=== PATIENT | male | born 1950 | race Caucasian/White ===

== ENCOUNTER 2020-03-25 07:21 | Emergency (ER) | payer MEDICARE, SELFPAY ==
--- NOTE | 2020-03-25 07:36 | ED_ITS ---
HPI - General Adult General Chief complaint: Fall Stated complaint: Right ear injury Time Seen by Provider: 03/25/20 07:27 Source: patient Mode of arrival: Ambulatory Limitations: no limitations History of Present Illness HPI narrative: 69-year-old male here for evaluation of injuries that he sustained approximately 8 hours prior to arrival here in the ER. Patient is on anticoagulation. He states that last evening he rolled out of bed hitting the right side of his head on the corner of his night stand. He states he was somewhat dazed afterwards. Was bleeding from his right ear. There was no loss of consciousness. He did try to clean of the blood from his right ear. Did not want to come the emergency department last evening but this morning was convinced to come by his . There is no other injuries from the event. Related Data Home Medications Medication Instructions Recorded Confirmed apixaban [Eliquis] 2.5 mg PO DAILY 03/25/20 03/25/20 clopidogrel [Plavix] 75 mg PO DAILY 03/25/20 03/25/20 Allergies Allergy/AdvReac Type Severity Reaction Status Date / Time No Known Drug Allergies Allergy Verified 03/25/20 07:45 Review of Systems Constitutional Constitutional: Denies fever(s) and Denies headache(s) ENT Ears, Nose, Mouth, and Throat: Denies dental pain, Denies dysphagia, Denies vertigo, Denies dizziness, Reports ear discharge, Reports otalgia, Denies facial pain, Denies headache(s), Denies neck pain, Reports tinnitus (Left ear but this is not new) and Denies sore throat Comments: Bleeding from around his right ear Cardiovascular Cardiovascular: Denies chest pain and Denies dyspnea Respiratory Respiratory: Denies dyspnea Gastrointestinal Gastrointestinal: Denies dysphagia Musculoskeletal Musculoskeletal: Denies neck pain and Denies tingling Integumentary/Breasts Comments: Cut the outside of the right ear Neurologic Neurologic: Denies behavioral changes, Denies confusion, Denies vertigo, Denies dizziness, Denies headache(s) and Denies tingling Psychiatric Psychiatric: Denies behavioral changes and Denies confusion Hematologic/Lymphatic Comments: On anticoagulation Allergic/Immunologic Allergic/Immunologic: Denies urticaria Patient History Medical History Tinnitus (Acute) Social History (Reviewed 03/25/20 @ 07:39 by ROSALIO Muñoz marital status: lives independently: Yes Smoking Status: Never smoker Exam Initial Vital Signs Initial Vital Signs: Vital Signs Temperature 98.1 F 03/25/20 07:41 Pulse Rate 78 03/25/20 07:41 Respiratory Rate 18 03/25/20 07:41 Blood Pressure 136/83 03/25/20 07:41 Pulse Oximetry 97 03/25/20 07:41 Const General: cooperative, comfortable, well developed and well groomed Limitations: mental status not altered HENMT Head: normal to inspection and normocephalic Ears: TM's normal bilaterally and EAC abnormal EAC tenderness (0.25 cm cut to the superior aspect of the tragus right ear) on the right Skin Other: Cut to the superior aspect of the tragus Extrem General: capillary refill normal Psych Appearance: grossly normal and well kempt Scores GCS Mystic coma scale eye opening: Spontaneous Mystic coma scale verbal response: Orientated Mystic coma scale motor response: Obey commands Reji coma scale total score: 15 Course Orders Ordered: ED Orders 03/25/20 07:36 CT head/brain wo con Stat 03/25/20 08:27 MR head/brain wo/w con Stat Vital Signs Vital signs: Vital Signs - 8 hr 03/25/20 07:41 Temperature 98.1 F Pulse Rate 78 Respiratory Rate 18 Blood Pressure 136/83 Pulse Oximetry 97 Medical Decision Making Imaging Data CT scan - head: Radiologist's Impression: [place] [address] CT Scan Report Signed Patient: Jerome Qiu#: [id number] : 3Acct:[id number] Age/Sex: 69 / MDate of Service: 03/25/20 Loc: ED Accession Number: [id number] Procedure: CT head/brain wo con Ordering Provider: Yuriy Thompson D.O. PROCEDURE: CT HEAD/BRAIN WO CON INDICATIONS: fell hit right side of head on anticoagulation TECHNIQUE: Noncontrast 4.5 mm thick angled axial sections acquired from the foramen magnum to the vertex, with coronal and sagittal reformats. For radiation dose reduction, the following was used: automated exposure control, adjustment of mA and/or kV according to patient size. COMPARISON: None. FINDINGS: Image quality: Excellent. CSF spaces: Basal cisterns are patent. No extra-axial fluid collections. The ventricles are symmetric in size and shape. Brain: No definite intracranial bleeds There is a questionable hyperdense mass within the left inferior medial cerebellar hemisphere which measures 1.5 x 1.2 x 0.9 cm (series 2/image 5 and series 5/image 22). This measures approximately 60 Hounsfield units in density. There is no surrounding edema or mass effect. There is cerebral volume loss for age, with resultant ventricular and sulcal prominence. There are periventricular and deep white matter chronic small vessel ischemic changes. There is intracranial internal carotid artery atherosclerosis. Skull and face: Calvarium and visualized facial bones appear intact, without suspicious lesions. Sinuses: Visualized sinuses and mastoids are clear. IMPRESSION: 1. No finding to suggest acute intracranial hemorrhage. However, there is a masslike hyperdensity within the left cerebellar hemisphere. Given the density, hemorrhage cannot be entirely excluded; however this appears to represent an indolent mass or may be artifact from the adjacent hyperdense bone. No definite dural tail to suggest meningioma; however a dural-based mass cannot be excluded. Further characterization with MRI with and without contrast could be used. This finding was discussed with Dr. Thompson at 8:26 a.m. On March 25, 2020. Dictated by: Octavia Meehan M.D. on 03/25/2020 at 8:18 Approved by: Octavia Meehan M.D. on 03/25/2020 at 8:28 MRI brain: Radiologist's Impression: [place] [address] Magnetic Resonance Report Signed Patient: Maninder Qiu#: [id number] : 3Acct:[id number] Age/Sex: 69 / MDate of Service: 03/25/20 Loc: ED Accession Number: [id number] Procedure: MR head/brain wo/w con Ordering Provider: Yuriy Thompson D.O. PROCEDURE: MR HEAD/BRAIN WO/W CON INDICATIONS: Cerebellar finding on CT MRI requested by Rads TECHNIQUE: Noncontrast axial T1 spin echo, axial T2 fast spin echo, sagittal and axial FLAIR, coronal T2 fast spin echo, axial gradient echo, axial diffusion and ADC through the brain. After the administration of contrast, axial and coronal T1 spin echo with fat saturation through the brain. COMPARISON: [facility], CT, CT HEAD/BRAIN WO TAE, 03/25/2020, 7:54. FINDINGS: Image quality: Excellent. CSF spaces: Basal cisterns are patent. No extra-axial fluid collections. Ventricles are normal in size and shape. Brain: There is a well-defined, T1 hypointense, T2 isointense, homogeneous avidly enhancing mass identified along the medial margin of the left cerebral hemisphere which appears to have a broad-based dural tail in close proximity to the adjacent sagittal sinus. There is no associated diffusion restriction abnormality. No adjacent vasogenic edema. This mass measures approximately 2.0 cm in transverse dimension and 1.2 cm in craniocaudal dimension (image 49, series 15). It measures approximately 1.3 cm in AP dimension (image 78, series 14). No midline shift. No intracranial bleeds. No abnormal intracranial enhancement. There is cerebral volume loss for age. There is periventricular white matter chronic small vessel ischemic change. The brainstem appears normal. Diffusion-weighted images demonstrate no acute ischemic insults. No ch ronic ischemic insults. Normal intravascular flow voids are present. Skull and face: Calvarial marrow is normal in signal. Orbits appear normal. Sinuses: Sinuses and mastoids appear clear. IMPRESSION: 1. A 2.0 x 1.2 x 1.3 cm extra-axial mass abutting the medial margin of the left cerebellum with imaging features most consistent with a meningioma. 2. No acute intracranial abnormalities identified in the brain. Dictated by: Cody Hutton M.D. on 03/25/2020 at 8:36 Approved by: Cody Hutton M.D. on 03/25/2020 at 8:50 [facility] Narrative Medical decision making narrative: CT scan of the head did not show any acute bleed however there was a cerebellar finding. I went to discuss this with the patient and he stated that he does know that he has a meningioma. He states that he is due for further workup of this. It has been several years since he had any sort of MRI. Given the report from the radiologist that this potentially could be a bleed although it is very unlikely an MRI was obtained. Does show the meningioma. No signs of bleeding. He was given a report to take to his primary doctor. The wound to his right ear needs no intervention here in the emergency department. Patient was given return precautions and follow-up instructions. He expressed understanding and agreement. Discharge Plan Departure Patient Disposition: Home Clinical Impression: Meningioma of cerebellum CHI (closed head injury) Qualifiers: Encounter type: initial encounter Qualified Code(s): S09.90XA - Unspecified injury of head, initial encounter Abrasion of right ear Qualifiers: Encounter type: initial encounter Qualified Code(s): S00.411A - Abrasion of right ear, initial encounter Instructions: DI for Abrasion Activity Restrictions/Additional Instructions: You can shower like normal. You can continue all of your medications as directed. Be sure to follow-up with your primary doctor to give him/her the findings of the MRI today. Return to the emergency department for any new or worsening symptoms Prescriptions: No Action clopidogrel [Plavix] 75 mg Tablet 75 mg PO DAILY RF: 0 Eliquis 2.5 mg Tablet 2.5 mg PO DAILY RF: 0
[2020-03-25 07:41] VITALS: BP 136/83; PULSE 78; RESP 18; TEMP 36.7; O2SAT 97; BMI 32.5
--- NOTE | 2020-03-25 08:27 | DI.MRI.S_ITS ---
PROCEDURE: MR HEAD/BRAIN WO/W CON INDICATIONS: Cerebellar finding on CT MRI requested by Rads TECHNIQUE: Noncontrast axial T1 spin echo, axial T2 fast spin echo, sagittal and axial FLAIR, coronal T2 fast spin echo, axial gradient echo, axial diffusion and ADC through the brain. After the administration of contrast, axial and coronal T1 spin echo with fat saturation through the brain. COMPARISON: [facility], CT, CT HEAD/BRAIN WO CON, 03/25/2020, 7:54. FINDINGS: Image quality: Excellent. CSF spaces: Basal cisterns are patent. No extra-axial fluid collections. Ventricles are normal in size and shape. Brain: There is a well-defined, T1 hypointense, T2 isointense, homogeneous avidly enhancing mass identified along the medial margin of the left cerebral hemisphere which appears to have a broad-based dural tail in close proximity to the adjacent sagittal sinus. There is no associated diffusion restriction abnormality. No adjacent vasogenic edema. This mass measures approximately 2.0 cm in transverse dimension and 1.2 cm in craniocaudal dimension (image 49, series 15). It measures approximately 1.3 cm in AP dimension (image 78, series 14). No midline shift. No intracranial bleeds. No abnormal intracranial enhancement. There is cerebral volume loss for age. There is periventricular white matter chronic small vessel ischemic change. The brainstem appears normal. Diffusion-weighted images demonstrate no acute ischemic insults. No chronic ischemic insults. Normal intravascular flow voids are present. Skull and face: Calvarial marrow is normal in signal. Orbits appear normal. Sinuses: Sinuses and mastoids appear clear. IMPRESSION: 1. A 2.0 x 1.2 x 1.3 cm extra-axial mass abutting the medial margin of the left cerebellum with imaging features most consistent with a meningioma. 2. No acute intracranial abnormalities identified in the brain. Dictated by: Cody Hutton M.D. on 03/25/2020 at 8:36 Approved by: Cody Hutton M.D. on 03/25/2020 at 8:50
[2020-03-25 10:16] VITALS: BP 134/83; PULSE 76; RESP 16; O2SAT 96
== END 2020-03-25 10:45 | disposition home or self-care (01) ==
PROVIDERS: Emergency Provider Emergency Medicine
DX: D32.0 Benign neoplasm of cerebral meninges (principal); S00.411A Abrasion of right ear, initial encounter; S09.90XA Unspecified injury of head, initial encounter; Z79.01 Long term (current) use of anticoagulants; W19.XXXA Unspecified fall, initial encounter
CPT/HCPCS: 70450; 70553; 82962; 99284

== ENCOUNTER → 2020-05-10 10:38 | Outpatient (CLI) | payer MEDICARE, SELFPAY ==
--- NOTE | 2020-05-10 10:40 | DI.RAD.S_ITS ---
PROCEDURE: XR ANKLE LT MIN 3V INDICATIONS: swelling, pain x3 wks lateral malleoli TECHNIQUE: 3 views of the ankle were acquired. COMPARISON: None. FINDINGS: Bones: No fracture. Plantar and posterior calcaneal spurring. Diffuse hindfoot degenerative sclerosis and spurring. Soft tissues: Scattered surgical clips IMPRESSION: Chronic degenerative changes as above. If the patient's pain or other symptoms persist, consider further evaluation with MRI Dictated by: Sajan Rocha M.D. on 05/10/2020 at 11:15 Approved by: Sajan Rocha M.D. on 05/10/2020 at 12:02
[2020-05-10 11:40] LABS: Uric Acid 5.8 mg/dL (3.5-8.5)
== END ==
PROVIDERS: Referring Provider Physician Assistant; Visit Provider Physician Assistant
DX: M25.579 Pain in unspecified ankle and joints of unspecified foot (principal)
CPT/HCPCS: 36415; 73610; 84550

== ENCOUNTER → 2020-06-19 09:45 | Outpatient (CLI) | payer MEDICARE, SELFPAY ==
[2020-06-19 11:19] LABS: Hemoglobin A1C% w Est Avg Glu 6.6 % (4.0-6.0)
[2020-06-19 11:25] LABS: Alanine Aminotransferase 39 IU/L (<50); Albumin 4.4 g/dL (3.5-5.0); Albumin Globulin Ratio 1.9 (1.0-2.8); Alkaline Phosphatase 78 U/L (38-126); Bilirubin Total 0.2 mg/dL (0.2-1.3); Blood Urea Nitrogen 20 mg/dL (9-20); Calcium 9.4 mg/dL (8.4-10.2); Carbon Dioxide 24 mmol/L (22-32); Chloride 109 mmol/L (98-107); Cholesterol 122 mg/dL (140-199); Estimated Glomerular Filt Rate > 60.0 mL/min (>60); Globulin 2.3 g/dL (1.7-4.1); Glucose 118 mg/dL (80-110); HDL Cholesterol 40 mg/dL (40-60); HEMOLYSIS < 15 (0-50); LDL Cholesterol Calculated 69 mg/dL (<100); Potassium 4.3 mmol/L (3.4-5.1); Sodium 141 mmol/L (137-145); Total Protein 6.7 g/dL (6.3-8.2); Triglycerides 64 mg/dL (35-150)
[2020-06-19 11:28] LABS: Add Manual Diff / Slide Review NO; Basophils Absolute Auto 0 /uL (0-100); Basophils Percent Auto 0.8 % (0-2); Eosinophils Absolute Auto 100 /uL (0-450); Eosinophils Percent Auto 1.5 % (2-4); Hematocrit 41.2 % (41-53); Hemoglobin 13.7 g/dL (13.5-17.5); Lymphocytes Absolute Auto 600 /uL (1100-4500); Lymphocytes Percent Auto 11.4 % (25-40); Mean Corpuscular HGB Conc 33.3 % (30-36); Mean Corpuscular Hemoglobin 26.5 PG (26-34); Mean Corpuscular Volume 79.5 fL (80-100); Monocytes Absolute Auto 600 /uL (0-900); Neutrophils Absolute Auto 4000 /uL (1500-7000); Neutrophils Percent Auto 75.3 % (50-75); Platelet Count 167 X10^3/uL (150-400); Red Blood Cell Count 5.19 X10^6/uL (4.5-5.9); Red Cell Distribution Width 14.3 % (11.6-14.8); White Blood Cell Count 5.3 X10^3/uL (4.5-11.0)
[2020-06-19 11:38] LABS: Aspartate Aminotransferase 34 IU/L (17-59)
[2020-06-19 11:51] LABS: Prostate Specific Antigen Scrn 0.608 ng/mL (0.1-4.0)
[2020-06-19 12:19] LABS: TSH w/ Reflex to FT4 1.91 uIU/mL (0.47-4.68)
== END ==
PROVIDERS: PCP Family Medicine; Referring Provider Family Medicine; Visit Provider Family Medicine
DX: Z12.5 Encounter for screening for malignant neoplasm of prostate (principal); E11.9 Type 2 diabetes mellitus without complications; Z76.89 Persons encountering health services in other specified circumstances; Z13.220 Encounter for screening for lipoid disorders; Z13.228 Encounter for screening for other metabolic disorders; Z13.29 Encounter for screening for other suspected endocrine disorder; Z79.01 Long term (current) use of anticoagulants
CPT/HCPCS: 36415; 80053; 80061; 83036; 84443; 85025; G0103

== ENCOUNTER → 2020-10-02 09:23 | Outpatient (CLI) | payer MEDICARE, SELFPAY ==
[2020-10-02 10:33] LABS: COVID19 -Nasal RAPID Negative (Negative)
== END ==
PROVIDERS: PCP Family Medicine; Visit Provider Surgery
DX: Z20.822 Contact with and (suspected) exposure to COVID-19 (principal)
CPT/HCPCS: 87635; C9803

== ENCOUNTER 2020-10-03 15:00 | Day surgery (SDC) | payer MEDICARE, SELFPAY ==
--- NOTE | 2020-10-03 | PATH_ITS ---
[facility] Accession Number: [id number] . 01 Material submitted: . PART A: body - POLYP @110CM PART B: body - POLYP @55CM . 02 Diagnosis: A. Colon, Polyp at 110 cm, Biopsy: Tubular adenoma. . B. Colon, Polyp at 55 cm, Biopsy: Hyperplastic polyp. MRV 10/09/2020 1453 Local . 02 Electronically signed: . Monique Martines MD, Pathologist NPI- [id number] . 01 Gross description: . Part A: POLYP @110CM: Received in formalin is 1 fragment(s) of sinha, soft tissue measuring 0.2 x 0.2 x 0.2 cm submitted entirely in 1 cassette(s) Part B: POLYP @55CM: Received in formalin is 1 fragment(s) of sinha, soft tissue measuring 0.2 x 0.2 x 0.2 cm submitted entirely in 1 cassette(s) /DOUG 10/04/2020 2044 Local . 02 Pathologist provided ICD-10: D12.6 . 02 CPT . 267839, [id number] Performed at: 01 [facility] [address] [place] [id number] MD Harris Shi MD Phone: [phone] Performed at: 02 [facility] [address] [place], [place] [id number] MD Monique Martines MD Phone: [phone]
[2020-10-03] MEDS: SODIUM CHLORIDE 0.9% 1,000 ML 200 ML IV (15:13)
[2020-10-03 15:22] VITALS: BP 144/84; PULSE 62; RESP 16; TEMP 36.5; O2SAT 95; BMI 31.0
--- NOTE | 2020-10-03 16:02 | PM.PREOP ---
Pre-operative Note COVID-19 COVID-19 status: Negative Result date/Date tested (Pos, Neg/Pending): 10/02/20 Interval Note History & Physical reviewed/Exam performed by Physician: Yes Changes to H&P: No ASA Class (for procedural sedation): II
--- NOTE | 2020-10-03 16:05 | P.OP.ENDO_ITS ---
Operative Date/Time/Diagnoses Date of procedure: 10/03/20 Time of procedure: 16:05 Pre-op diagnosis: Positive cologuard Post-op diagnosis: other (Two small polyps, diverticulosis) Procedure & Clinicians Study performed: Colonoscopy Procedural sedation performed by the endoscopist Polypectomy x2 with Jumbo forceps Same procedure as scheduled: Yes Indications: Last colonoscopy was 21 years ago. Patient recently has a positive Cologuard test. Surgeon: Ophelia Quinn Procedure Notes SCOAP/Timeout: Performed Procedure in detail: The patient was brought to the room and placed in left lateral decubitus position with all bony prominences padded. A time-out was performed and then the patient was given procedural sedation starting with 6 mg of Versed and 100 mcg of fentanyl. Vitals were monitored throughout the procedure and remained stable. Once adequately sedated, the procedure was begun. A rectal exam was performed revealing no abnormalities. The colonoscope was then introduced to the rectum and advanced to the cecum in the usual fashion. The cecum was identified by the appendiceal orifice, the mucosal tri- fold, and the ileocecal valve. The scope was then retracted while rotating side to side and examining each mucosal fold. There were 2 small polyps found 1 at 110 cm and 1 at 55 cm which were removed with Jumbo forceps. Diverticulosis was seen throughout the colon, most extensively in the sigmoid and descending colon. No evidence of active diverticulitis is seen. At the conclusion of the procedure retroflexion was performed and small grade 1-2 internal hemorrhoids without stigmata of bleeding were seen. The scope was then withdrawn from the rectum the procedure was concluded. The patient tolerated the procedure well and was transferred to the PACU in stable condition. A total of 8 mg of Versed and 150 micro g of fentanyl for the entire procedure. Scope withdrawal time: 16 Sedation minutes: 23 Findings: diverticulosis and polyp Specimen(s): other (To pre cancerous appearing polyps, 1 at 110 cm, and 1 at 55 cm) Complications: none Impression: Two small pre cancerous appearing polyps, extensive diverticulosis Post-procedure Recommendations: Colonscopy in 10 years (Depending on pathology results) and Other recommendation (Increase dietary fiber, consider fiber supplement) Follow up: as needed Disposition: PACU
[2020-10-03] MEDS: MIDAZOLAM 5 MG/5 ML VIAL IV (16:32)
[2020-10-03 16:33] VITALS: BP 139/80; PULSE 75; RESP 12; TEMP 36.6; O2SAT 97
[2020-10-03] MEDS: fentaNYL 250 MCG/5 ML INJ IV (16:33)
[2020-10-03 16:38] VITALS: BP 127/76; PULSE 75; RESP 12; O2SAT 95
[2020-10-03 16:43] VITALS: BP 130/75; PULSE 73; RESP 12; O2SAT 96
[2020-10-03 16:48] VITALS: BP 134/78; PULSE 62; RESP 16; O2SAT 97
[2020-10-03 16:55] VITALS: BP 113/73; PULSE 66; RESP 12; TEMP 36.9; O2SAT 97
== END 2020-10-03 17:05 | disposition home or self-care (01) ==
PROVIDERS: PCP Family Medicine; Referring Provider Surgery; Visit Provider Surgery
PROC: 0DJD8ZZ Inspection of Lower Intestinal Tract, Via Natural or Artificial Opening Endoscopic (ICD-10-PCS; CPT 45378; principal; 2020-10-03 16:00)
DX: R19.5 Other fecal abnormalities (principal); K57.30 Diverticulosis of large intestine without perforation or abscess without bleeding; K64.0 First degree hemorrhoids; D12.6 Benign neoplasm of colon, unspecified
CPT/HCPCS: 45380; 99152; J2250; J3010

== ENCOUNTER → 2021-01-09 16:06 | Outpatient (CLI) | payer MEDICARE, SELFPAY ==
[2021-01-09 16:48] LABS: Hemoglobin A1C% w Est Avg Glu 5.7 % (4.0-6.0)
[2021-01-09 17:05] LABS: Alanine Aminotransferase 30 IU/L (<50); Albumin 4.5 g/dL (3.5-5.0); Albumin Globulin Ratio 1.7 (1.0-2.8); Alkaline Phosphatase 65 U/L (38-126); Aspartate Aminotransferase 34 IU/L (17-59); BUN Creatinine Ratio 12.7 (6-22); Bilirubin Total 0.9 mg/dL (0.2-1.3); Blood Urea Nitrogen 16 mg/dL (9-20); Carbon Dioxide 26 mmol/L (22-32); Chloride 104 mmol/L (98-107); Cholesterol 114 mg/dL (140-199); Estimated Glomerular Filt Rate 56.9 mL/min (>60); Globulin 2.7 g/dL (1.7-4.1); Glucose 81 mg/dL (80-110); HDL Cholesterol 47 mg/dL (40-60); HEMOLYSIS < 15 (0-50); LDL Cholesterol Calculated 51 mg/dL (<100); Potassium 4.4 mmol/L (3.4-5.1); Sodium 139 mmol/L (137-145); Total Protein 7.2 g/dL (6.3-8.2); Triglycerides 78 mg/dL (35-150); Uric Acid 4.8 mg/dL (3.5-8.5)
[2021-01-09 17:17] LABS: Add Manual Diff / Slide Review NO; Basophils Absolute Auto 0 /uL (0-100); Basophils Percent Auto 0.6 % (0-2); Eosinophils Absolute Auto 100 /uL (0-450); Eosinophils Percent Auto 1.3 % (2-4); Hematocrit 47.2 % (41-53); Hemoglobin 15.6 g/dL (13.5-17.5); Lymphocytes Absolute Auto 1100 /uL (1100-4500); Lymphocytes Percent Auto 17.4 % (25-40); Mean Corpuscular HGB Conc 33.2 % (30-36); Mean Corpuscular Hemoglobin 26.7 PG (26-34); Mean Corpuscular Volume 80.7 fL (80-100); Monocytes Absolute Auto 600 /uL (0-900); Monocytes Percent Auto 9.7 % (3-14); Neutrophils Absolute Auto 4400 /uL (1500-7000); Platelet Count 174 X10^3/uL (150-400); Red Blood Cell Count 5.85 X10^6/uL (4.5-5.9); Red Cell Distribution Width 15.2 % (11.6-14.8); White Blood Cell Count 6.2 X10^3/uL (4.5-11.0)
== END ==
PROVIDERS: PCP Family Medicine; Referring Provider Family Medicine; Visit Provider Family Medicine
DX: E11.9 Type 2 diabetes mellitus without complications (principal); I10 Essential (primary) hypertension; F41.9 Anxiety disorder, unspecified; M10.9 Gout, unspecified
CPT/HCPCS: 36415; 80053; 80061; 83036; 84550; 85025

== ENCOUNTER → 2021-04-19 09:36 | Outpatient (CLI) | payer MEDICARE, SELFPAY ==
[2021-04-19 11:04] LABS: Alanine Aminotransferase 33 IU/L (<50); Albumin 4.5 g/dL (3.5-5.0); Albumin Globulin Ratio 1.9 (1.0-2.8); Alkaline Phosphatase 58 U/L (38-126); Aspartate Aminotransferase 30 IU/L (17-59); Bilirubin Total 0.8 mg/dL (0.2-1.3); Blood Urea Nitrogen 19 mg/dL (9-20); Calcium 10.1 mg/dL (8.4-10.2); Carbon Dioxide 28 mmol/L (22-32); Chloride 105 mmol/L (98-107); Cholesterol 127 mg/dL (140-199); Estimated Glomerular Filt Rate > 60.0 mL/min (>60); Globulin 2.4 g/dL (1.7-4.1); Glucose 104 mg/dL (80-110); HDL Cholesterol 44 mg/dL (40-60); HEMOLYSIS < 15 (0-50); LDL Cholesterol Calculated 67 mg/dL (<100); Potassium 4.5 mmol/L (3.4-5.1); Sodium 139 mmol/L (137-145); Total Protein 6.9 g/dL (6.3-8.2); Triglycerides 81 mg/dL (35-150)
== END ==
PROVIDERS: PCP Family Medicine; Referring Provider Internal Medicine Cardiovascular Disease; Visit Provider Internal Medicine Cardiovascular Disease
DX: E78.5 Hyperlipidemia, unspecified (principal)
CPT/HCPCS: 36415; 80053; 80061

== ENCOUNTER → 2021-05-22 09:37 | Outpatient (CLI) | payer MEDICARE, SELFPAY ==
[2021-05-22 10:58] LABS: COVID19 -Nasal RAPID Negative (Negative)
--- NOTE | 2021-05-22 15:38 | PM.TREADMILL ---
Cardiac Stress Test Report Referral & Results Date Patient Seen: 05/22/21 Time Patient Seen: 15:39 Requesting provider: Aj Mcgarry Indication: Atherosclerosis of coronary artyery bypass Rest ECG: Normal sinus rhythm Procedure Note: Standard Braeden protocol, 8:07, 8.9 METS Good exercise capacity, YAHIR -11% Normal hemodynamic response to exercise No chest pain or anginal symptoms Resting ECG sinus rhythm, no significant ST changes, no significant arrhythmias Nuclear images pending Physician to review Impression: Normal exercise stress test Please note: Actual ECG tracings can be found in the PACS system.
--- NOTE | 2021-05-22 19:33 | DI.NM.S_ITS ---
DATE OF SERVICE: PROCEDURE: Exercise perfusion study. DATE OF STUDY: May 22, 2021 INDICATIONS: History of bypass surgery in 2000 with underlying hypertension and hyperlipidemia. RADIOPHARMACEUTICAL: 25.3 millicurie technetium-99m Myoview IV was injected at stress and 12.7 millicurie technetium-99m Myoview IV was injected at rest. CARDIAC STRESS: The patient underwent exercise perfusion study under the supervision of an attending staff. The patient walked on Braeden protocol for 8 minutes and 7 seconds, achieved 89 percent of target heart rate, YAHIR -11 perfect and 10.1 METS of workload. Baseline blood pressure 115/70 mmHg. Peak blood pressure 168/84 mmHg. Baseline rhythm was sinus. There were some nonspecific ST/T changes. During stress, there were some nonspecific ST changes without any convincing ischemic changes. No significant sustained arrhythmias. No chest pain or anginal symptoms. RAW DATA: There is increased subdiaphragmatic activity. GATED STUDY: Resting LV ejection fraction 73 percent and stress LV ejection fraction 78 percent without any obvious wall motion abnormalities. Resting end- diastolic volume 110 mL. TID ratio 0.73, which is within normal limits. Lung/heart ratio 0.35, which is within normal limits. MYOCARDIAL PERFUSION SCAN: Stress supine, resting supine and stress prone images were compared to each other. Stress supine and resting supine images revealed small size, mildly decreased perfusion of basal inferior wall as well as inferior apex which got completely resolved during stress prone images, suggestive of tissue attenuation artifact, like diaphragmatic tissue attenuation artifact. No convincing ischemia or infarction. CONCLUSION: I will call this study a normal myocardial perfusion study with evidence of diaphragmatic tissue attenuation artifact which got resolved during stress prone images. Good exercise tolerance. Normal hemodynamic response. Preserved left ventricular function. No significant arrhythmias seen. Overall low-risk myocardial perfusion study. Maninder Qiu Jr - [employer]/ilda/elisha doc#: [id number]/job#: [id number] dd: 05/22/2021 16:38:00 dt: 05/22/2021 19:21:00 DICTATING MD/COPIES TO: Aj Mcgarry MD COPIES MNE: JOSIAH;
== END ==
PROVIDERS: PCP Family Medicine; Referring Provider Internal Medicine Cardiovascular Disease; Visit Provider Internal Medicine Cardiovascular Disease
DX: I25.810 Atherosclerosis of coronary artery bypass graft(s) without angina pectoris (principal); I10 Essential (primary) hypertension; E78.5 Hyperlipidemia, unspecified; Z20.822 Contact with and (suspected) exposure to COVID-19
CPT/HCPCS: 78452; 87635; 93017; A9502

== ENCOUNTER → 2021-06-07 16:04 | Outpatient (CLI) | payer MEDICARE, SELFPAY ==
--- NOTE | 2021-06-07 16:05 | DI.RAD.S_ITS ---
PROCEDURE: XR FINGER RT MIN 2V INDICATIONS: PIP joint of the ring finger of his dominant right hand TECHNIQUE: AP hand, 2 views of the 4th finger(s) acquired. COMPARISON: None. FINDINGS: Bones: No fractures or dislocations. No suspicious bony lesions. Soft tissues: No suspicious soft tissue calcifications. IMPRESSION: No acute fracture. No osseous lesion. If symptoms and/or clinical suspicion for pathology persist, further assessment with repeat, or advanced imaging (e.g., CT, MRI, or bone scan) may be helpful for further assessment. Dictated by: Tano Chang M.D. on 06/07/2021 at 16:38 Approved by: Tano Chang M.D. on 06/07/2021 at 16:54
== END ==
PROVIDERS: PCP Family Medicine; Referring Provider Family Medicine; Visit Provider Family Medicine
DX: M1A.0720 Idiopathic chronic gout, left ankle and foot, without tophus (tophi) (principal); M25.541 Pain in joints of right hand
CPT/HCPCS: 73140

== ENCOUNTER → 2021-07-26 16:48 | Outpatient (CLI) | payer MEDICARE, SELFPAY ==
--- NOTE | 2021-07-26 16:49 | DI.RAD.S_ITS ---
PROCEDURE: XR FINGER LT MIN 2V INDICATIONS: finger jammed TECHNIQUE: AP hand, 2 views of the 3rd finger(s) acquired. COMPARISON: [facility], CR, XR FINGER RT MIN 2V, 06/07/2021, 16:04. FINDINGS: Bones: Possible chip avulsion fracture involves the volar base of the 3rd middle phalanx at the PIP. Normal bone mineralization present. Soft tissues: No suspicious soft tissue calcifications. IMPRESSION: 1. Possible avulsion fracture versus osteophyte at the base of the 3rd middle phalanx. Correlate with point tenderness Approved by: Catracho Russo M.D. on 07/26/2021 at 17:13
== END ==
PROVIDERS: PCP Family Medicine; Referring Provider Nurse Practitioner Family; Visit Provider Nurse Practitioner Family
DX: S69.92XA Unspecified injury of left wrist, hand and finger(s), initial encounter (principal); W23.0XXA Caught, crushed, jammed, or pinched between moving objects, initial encounter
CPT/HCPCS: 73140

== ENCOUNTER 2021-10-12 11:24 | Emergency (ER) | payer MEDICARE, SELFPAY ==
--- NOTE | 2021-10-12 11:52 | ED_ITS ---
HPI - Neuro Symptoms/Deficit General Chief Complaint: Dizziness Stated Complaint: vertigo last 2 days, feeling like he's in a cloud Time Seen by Provider: 10/12/21 11:40 Source: patient Mode of arrival: Ambulatory Limitations: no limitations History of Present Illness HPI Narrative: This is a 71-year-old male with known cardiac history with stents followed by CABG in 1999, ablation for atrial fibrillation on Eliquis, Plavix, metformin and Victoza for type 2 diabetes, antihypertensives and cholesterol medication. Patient states he woke up yesterday day morning with mild to moderate headache greatest in the occipital region and vertigo type symptoms. Patient states any time he would roll over or move his head felt like he was on a boat, he felt like he was trying to walk off to the left side. He denies any numbness, tingling or weakness in extremities. He states that his symptoms have been slowly improving are very mild this time. Headache present. No fevers or chills. No cold cough or congestion. No chest pain or shortness of breath. He had nausea yesterday but none today. No vomiting. Some diarrhea for the last several days but no urinary symptoms. Patient did notice a little bit of a rash over his right nipple which he states is new. Patient has not had vertigo symptoms in the past. Patient does not use tobacco, occasional alcohol, no illicit. Dr. Rodríguez is his primary care. He sees cardiology locally through [facility]. Related Data Home Medications Medication Instructions Recorded Confirmed clopidogrel 75 mg tablet (Plavix) 75 mg PO DAILY 03/25/20 08/18/21 brimonidine 0.2 % eye drops 1 drp EYE-BOTH BID 10/03/20 08/18/21 dorzolamide 22.3 mg-timolol 6.8 1 drp EYE-BOTH BID 10/03/20 08/18/21 mg/mL eye drops latanoprost 0.005 % eye drops 1 drp EYE-BOTH DAILY 10/03/20 08/18/21 Previous Rx's Medication Instructions Recorded blood sugar diagnostic (Accu-Chek #100 ea 11/27/20 Guide test strips) apixaban 5 mg tablet (Eliquis) See Rx Instructions .ROUTE 03/08/21 .COMPLEX #180 tab eszopiclone 2 mg tablet (Lunesta) 2 mg PO BEDTIME PRN #30 tab 05/07/21 colchicine 0.6 mg tablet 0.6 mg PO DAILY PRN #20 tab 06/06/21 liraglutide 0.6 mg/0.1 mL (18 mg/3 1.8 mg (0.3 mL) SUBCUT DAILY #27 ml 06/18/21 mL) subcutaneous pen injector (Victoza 3-Saúl) sertraline 100 mg tablet 100 mg PO DAILY #90 tab 06/18/21 acetaminophen 300 mg-codeine 30 mg 1 tab PO Q6H PRN #30 tab 08/03/21 tablet allopurinol 100 mg tablet See Rx Instructions .ROUTE 08/21/21 .COMPLEX #100 tab empagliflozin 25 mg tablet See Rx Instructions .ROUTE 08/21/21 (Jardiance) .COMPLEX #100 tab metformin 500 mg tablet,extended See Rx Instructions .ROUTE 08/21/21 release 24 hr .COMPLEX #200 tab BD Ultra Fine Pen Tips 31G x 8mm #2 ea 09/07/21 Allergies Allergy/AdvReac Type Severity Reaction Status Date / Time No Known Drug Allergies Allergy Verified 08/18/21 15:10 Review of Systems Review of Systems ROS Unobtainable: All systems reviewed & are unremarkable except as noted in HPI and below Patient History Medical History Ankle pain (~2018) Anxiety (~2019) Cataracts, bilateral (~1997) Coronary artery disease (~1999) Depression (~2019) Foot pain (~2001) Glaucoma (~2009) Gout (~2001) Hearing loss (~2018) Hypertension (~1999) Kidney stones (~1989) Retinal detachment Sleep apnea (~1999) Tinnitus Type 2 diabetes mellitus (~2000) Surgical History Anesthesia History of coronary artery stent placement (~1997) History of surgery (~03/2019) S/P triple vessel bypass (~10/1999) Family History Father Liver disease Mother History of heart disease Hypertension Diabetes mellitus Brother History of heart disease Hypertension Social History marital status: household members: spouse lives independently: Yes occupational status: employed Smoking Status: Never smoker alcohol intake: current substance use type: marijuana (edibles rarely) Smoking Status: Never smoker alcohol intake frequency: holidays/special occasions only Substance Use Type: does not use Exam Narrative Exam Narrative: GEN: well nourished, well appearing male, alert and oriented x 3, patient appears to be in mild distress. HEENT: Atraumatic, pupils are equal round reactive to light, extraocular movements are intact, nares are clear, TMs are clear with no fluid, there is no conjunctival pallor. Throat is clear without any exudates, erythema, tonsillar enlargement or uvular deviation, no facial droop. HEART: Regular rate and rhythm without murmur, clicks, rubs. pulses are equal i n upper and lower extremities LUNGS:Lungs clear to auscultation, no wheezes, rales, crackles, chest moves symmetrically ABD:bowel sounds normal, soft, non-tender, no guarding, rebound, rigidity, no ma sses noted, no hepatosplenomegaly :No CVA tenderness MSCL: Non-tender, no muscle atrophy, muscles strength 5/5 upper and lower extremities, full range of motion, normal gait NEURO:CN 2-12 intact, sensation normal, reflexes 2/4 upper and lower extremities. finger nose finger test normal, heel fletcher test andreia SKIN: Patient has several small erythematous circular patches adjacent to his right nipple, there is no blistering, they do not cross the midline there localized to the right pectoral region. There is no warmth, no drainage. Initial Vital Signs Initial Vital Signs: Vital Signs Pulse Rate 73 10/12/21 11:57 Pulse Oximetry 96 10/12/21 11:57 Scores NIH Stroke Scale Level of Conciousness: Alert, keenly responsive Ask month/age: Answers both questions correctly. Open/close eyes, close hand: Performs both tasks correctly Best gaze horizontal: Normal Visual logan: No visual loss Facial palsy: Normal symetrical movement Left arm drift: No drift for full 10 sec Right arm drift: No drift for full 10 sec Left leg drift: No drift for full 5 sec Right leg drift: No drift for full 5 sec Limb ataxia: Absent Sensory on face/arms/legs: Normal, no sensory loss Best language: No aphasia, normal Dysarthria: Normal Extinction or inattention: No abnormality Total NIH Stroke scale score: 0 Course Orders Ordered: Discontinued Medications Acetaminophen (Acetaminophen 325 Mg Tablet) 650 mg PO NOW ONE Stop: 10/12/21 12:41 Last Admin: 10/12/21 12:59 Dose: 650 mg Documented by: CANDELARIA Reevaluation(s) Reevaluation #1: Patient continues to feel improved. Reviewed all of his findings today. He feels comfortable returning home. We discussed return precautions. Time: 14:17 Vital Signs Vital signs: Vital Signs - 8 hr 10/12/21 11:57 10/12/21 12:00 10/12/21 12:03 Temperature 98.4 F Pulse Rate 73 69 74 Respiratory Rate 16 Blood Pressure 126/66 Pulse Oximetry 96 90 L 95 10/12/21 12:15 10/12/21 12:30 Temperature Pulse Rate 71 71 Respiratory Rate 16 16 Blood Pressure 130/76 115/65 Pulse Oximetry 96 92 MDM - Neuro Symptoms/Deficit Lab Data Result diagrams: 10/12/21 12:15 10/12/21 12:15 Labs: Lab Results 10/12/21 10/12/21 10/12/21 Range/Units 12:15 12:15 12:15 WBC 5.7 (4.5-11.0) X10^3/uL RBC 5.52 (4.5-5.9) X10^6/uL Hgb 14.6 (13.5-17.5) g/dL Hct 43.4 (41-53) % MCV 78.6 L (80-100) fL MCH 26.5 (26-34) PG MCHC 33.7 (30-36) % RDW 14.9 H (11.6-14.8) % Plt Count 135 L (150-400) X10^3/uL Neut % (Auto) 73.9 (50-75) % Lymph % (Auto) 12.9 L (25-40) % Wagoner % (Auto) 10.6 (3-14) % Eos % (Auto) 1.8 L (2-4) % Baso % (Auto) 0.8 (0-2) % Neut # (Auto) 4200 (3109-7726) /uL Lymph # (Auto) 700 L (0827-2940) /uL Wagoner # (Auto) 600 (0-900) /uL Eos # (Auto) 100 (0-450) /uL Baso # (Auto) 0 (0-100) /uL PT 14.9 H (10.1-12.7) SECONDS INR 1.3 (0.9-1.3) APTT 34 (26.4-36.2) SECONDS Sodium 140 (137-145) mmol/L Potassium 4.1 (3.4-5.1) mmol/L Chloride 109 H (98-107) mmol/L Carbon Dioxide 25 (22-32) mmol/L BUN 24 H (9-20) mg/dL Creatinine 1.14 (0.66-1.25) mg/dL Estimated GFR > 60 (>60) mL/min BUN/Creatinine Ratio 21.1 (6-22) Glucose 126 H (80-110) mg/dL Calcium 9.2 (8.4-10.2) mg/dL Magnesium 2.1 (1.6-2.3) mg/dL Total Bilirubin 0.5 (0.2-1.3) mg/dL AST 28 (17-59) IU/L ALT 29 (<50) IU/L Alkaline Phosphatase 59 (38-126) U/L Total Creatine Kinase 58 (55-170) U/L CK-MB (CK-2) TNP CK-MB (CK-2) Rel Index TNP Troponin I < 0.012 (0.01-0.034) ng/mL Total Protein 6.6 (6.3-8.2) g/dL Albumin 4.3 (3.5-5.0) g/dL Globulin 2.3 (1.7-4.1) g/dL Albumin/Globulin Ratio 1.9 (1.0-2.8) Lipase 1418 H (23-300) U/L Imaging Data CTA - brain/neck: Radiologist's Impression: Launch?[address] [address] [address] Scan Report Signed Patient: Maninder Qiu Jr MR#: [id number] : 1950 Acct:[id number] Age/Sex: 71 / M Date of Service: 10/12/21 Loc: ED Accession Number: [id number] ?? Procedure: CT angio head and neck Ordering Provider: Connie Romero D.O. PROCEDURE:? CT ANGIO HEAD AND NECK ? INDICATIONS:? vertigo, elder, on thinners. ? TECHNIQUE:? After the administration of intravenous contrast, 1 mm thick sections acquired from the aortic arch through the [place] of [place].? Post-contrast 4.5 mm thick sections then re-acquired from the foramen magnum to the vertex.? 3-dimensional wfrwdsi-dfudjtnex-jtkxczibek (MIP) and/or volume rendering reformats were acquired of the central intracranial vasculature and neck separately. For radiation dose reduction, the following was used:? automated exposure control, adjustment of mA and/or kV according to patient size.? ? COMPARISON:? [facility], CT, CT HEAD/BRAIN WO CON, 03/25/2020, 7:54.? Outside Facility, RG, MRI BRAIN W/WO CONTRAST, 11/30/2012, 23:07.? [facility], MR, MR HEAD/BRAIN WO/W CON, 03/25/2020, 8:31.? [facility], CT, CT HEAD/BRAIN WO CON, 10/12/2021, 12:31. ? FINDINGS:? Image quality:? Excellent.? ? BRAIN:? CSF spaces:? Ventricles are normal in size and shape.? Basal cisterns are patent.? No extra-axial fluid collections.? ? Brain:? No midline shift.? No intracranial bleeds.? There is a 1.3 by 1.9 x 1.3 centimeter enhancing, extra-axial left posterior fossa mass adjacent to the inferior margin left cerebellar hemisphere which is not significantly changed in size or contour compared to prior exams.? Michael-white matter interface appears intact.? ? Skull and face:? Calvarium and facial bones appear intact, without suspicious lesions.? Orbits appear normal.? ? Sinuses:? Sinuses and mastoids are clear.? ? HEAD CT ANGIOGRAPHY:? Anterior circulation:? Intracranial internal carotid arteries are normal in flow. Atherosclerotic calcifications noted in the cavernous and clinoid segments of the internal carotid arteries bilaterally which causes mild stenosis of the vessels.? ? The flow within the paired anterior cerebral arteries is normal and symmetric.? The flow within the middle cerebral arteries is normal and symmetric.? The anterior communicating artery is seen.? No aneurysms are seen.? ? Posterior circulation:? Atherosclerotic calcification noted in the proximal V4 segment of the right vertebral artery which causes mild narrowing of the vessel.? Normal flow noted in the basilar artery.? Basilar artery is fully patent.? Flow within the po sterior cerebral arteries is normal and symmetric.? No aneurysms are seen.? ? Dural sinuses demonstrate normal postcontrast enhancement.? ? NECK CT ANGIOGRAPHY:? Carotid system:? The great vessels demonstrate a conventional anatomy as they arise from the aortic arch.? The origins of the common carotid arteries appear patent.? The common carotid arteries demonstrate normal caliber and courses.? Soft and calcified atherosclerotic plaque noted in the origins of the internal carotid arteries which causes less than 50% stenosis of the vessels.? ? Posterior circulation:? 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 Left vertebral artery arises from the aortic arch.? The origins of the vertebral arteries both appear widely patent.? The more superior extracranial portions of both vertebral arteries also demonstrate normal courses and calibers.? They join to form a normal appearing basilar artery.? ? Soft tissues:? Visualized neck soft tissues demonstrate no suspicious abnormalities.? ? Bones:? No suspicious bony lesions. Spine degenerative disc disease and facet arthropathy. Visualized cervical spine appears normally aligned.? ? ? IMPRESSION:? ? 1. No acute intracranial disease process.? ? 2. No large vessel occlusion, hemodynamically significant vascular stenosis, vascular dissection or aneurysm. ? 3. 1.3 x 1.9 x 1.3 centimeter left posterior fossa extra-axial enhancing mass wh ich is stable compared to prior exams.? Lesion likely represents a meningioma. ? Any quantitative measurements of stenosis were performed using NASCET criteria.? ? ? Dictated by: Carmella Cisse MD, PhD on 10/12/2021 at 13:31 ? ? Approved by: Carmella Cisse MD, PhD on 10/12/2021 at 13:42? Chest x-ray: Radiologist's Impression: [address] [address] XRay Report Signed Patient: Maninder Qiu Jr MR#: [id number] : 1950 Acct:[id number] Age/Sex: 71 / M Date of Service: 10/12/21 Loc: ED Accession Number: [id number] ?? Procedure: XR chest 1V Ordering Provider: Connie Romero D.O. PROCEDURE:? XR CHEST 1V ? INDICATIONS:? chest pain ? TECHNIQUE:? One view of the chest was acquired.? ? COMPARISON:? None. ? FINDINGS:? ? Surgical changes and devices:? Post median sternotomy and CABG. ? Lungs and pleura:? Lungs appear clear.? No pleural effusions or pneumothorax.? ? Mediastinum:? Mediastinal contours appear normal.? Heart size is prominent.? ? Bones and chest wall:? No suspicious bony lesions.? Overlying soft tissues appear unremarkable.? ? IMPRESSION:? No acute cardiopulmonary abnormality. Cardiomegaly. ? ? Dictated by: Gregory Monge M.D. on 10/12/2021 at 12:35 ? ? Approved by: Gregory Monge M.D. on 10/12/2021 at 12:36?? ECG Data Attestation: I personally reviewed and interpreted this ECG as follows: Prior ECG tracings: not available for review Interpretation: Sinus rhythm rate of 67 WA 180 QRS 86 QTC 418. No acute ST elevation depression noted. Nonspecific change. No priors available for review. MDM Narrative Medical decision making narrative: This is a 71-year-old male comes emergency department with wake up with vertigo symptoms yesterday morning greater than 24 hours. Patient states they have been improving over time. He has had a persistent headache, his NIH scale is 0. He ad CT is negative, CT angio shows meningioma which appears stable with no acute changes or stenosis or vascular occlusions, labs showed elevated lipase but no other major changes. Patient did have risk factors for stroke but is anticoagulated on Eliquis and Plavix. With an NIH of 0 and no other acute neurologic changes suspect this is a more benign cause of his vertigo symptoms. Recommend follow-up with ENT for further testing as well as primary care. Stroke Core Measures Exclusion Criteria TPA in CVA: Symptom Onset >3 or 4.5 Hours Discharge Plan Departure Patient Disposition: Home Clinical Impression: Vertigo Instructions: DI for Vertigo Activity Restrictions/Additional Instructions: Follow-up with your physician for recheck. If you are having persistent symptoms I do recommend follow-up with ENT for further evaluation of vertigo symptoms. It is noted that your lipase is elevated today, this is associated with your pancreas. I would recommend having this rechecked in the next week. You can take meclizine or Antivert 1-2 tablets pylm-ksr-tzfpyzk every 8 hours as needed. Please return for fevers, severe headaches, rapidly worsening symptoms, inability or difficulty ambulating safely, sudden vision changes, new numbness, tingling or weakness, facial droop, no abdominal pain or other new or concerning symptoms. Prescriptions: No Action (DME) Accu-Chek Guide test strips Strip See Rx Instructions .ROUTE .MEDSUPPLY Qty: 100 3RF Rx Instructions: As directed Eliquis 5 mg tablet See Rx Instructions .ROUTE .COMPLEX Qty: 180 3RF Dose Instruction: TAKE 1 TABLET BY MOUTH TWICE DAILY Rx Instructions: TAKE 1 TABLET BY MOUTH TWICE DAILY eszopiclone [Lunesta] 2 mg tablet 2 mg PO BEDTIME PRN (Reason: sleep) Qty: 30 2RF Victoza 3-Saúl 0.6 mg/0.1 mL (18 mg/3 mL) pen injector 1.8 mg SUBCUT DAILY Qty: 27 4RF sertraline 100 mg tablet 100 mg PO DAILY Qty: 90 3RF metformin 500 mg tablet extended release 24 hr See Rx Instructions .ROUTE .COMPLEX Qty: 200 2RF Dose Instruction: TAKE 1 TABLET BY MOUTH TWICE DAILY Rx Instructions: TAKE 1 TABLET BY MOUTH TWICE DAILY allopurinol 100 mg tablet See Rx Instructions .ROUTE .COMPLEX Qty: 100 2RF Dose Instruction: TAKE 1 TABLET BY MOUTH DAILY Rx Instructions: TAKE 1 TABLET BY MOUTH DAILY Jardiance 25 mg tablet See Rx Instructions .ROUTE .COMPLEX Qty: 100 2RF Dose Instruction: TAKE 1 TABLET BY MOUTH DAILY Rx Instructions: TAKE 1 TABLET BY MOUTH DAILY (DME) BD Ultra Fine Pen Tips 31G x 8mm 100 package See Rx Instructions .ROUTE .MEDSUPPLY Qty: 2 2RF Rx Instructions: USE TO INJECT VICTOZA ONCE DAILY acetaminophen-codeine 300-30 mg tablet 1 tab PO Q6H PRN (Reason: pain) Qty: 30 0RF colchicine 0.6 mg tablet 0.6 mg PO DAILY PRN (Reason: gout) Qty: 20 1RF Rx Instructions: Take 1 p.o. Q hour max x6 as needed gout attack clopidogrel [Plavix] 75 mg Tablet 75 mg PO DAILY 0RF latanoprost 0.005 % drops 1 drp EYE-BOTH DAILY 0RF brimonidine 0.2 % drops 1 drp EYE-BOTH BID 0RF dorzolamide-timolol 22.3-6.8 mg/mL drops 1 drp EYE-BOTH BID 0RF Referrals: Erik Henriquez MD [Physician] - Tyree Rodríguez DO [Primary Care Provider] -
[2021-10-12 11:57] VITALS: PULSE 73; O2SAT 96
[2021-10-12 12:00] VITALS: PULSE 69; O2SAT 90
--- NOTE | 2021-10-12 12:01 | DI.RAD.S_ITS ---
PROCEDURE: XR CHEST 1V INDICATIONS: chest pain TECHNIQUE: One view of the chest was acquired. COMPARISON: None. FINDINGS: Surgical changes and devices: Post median sternotomy and CABG. Lungs and pleura: Lungs appear clear. No pleural effusions or pneumothorax. Mediastinum: Mediastinal contours appear normal. Heart size is prominent. Bones and chest wall: No suspicious bony lesions. Overlying soft tissues appear unremarkable. IMPRESSION: No acute cardiopulmonary abnormality. Cardiomegaly. Dictated by: Gregory Monge M.D. on 10/12/2021 at 12:35 Approved by: Gregory Monge M.D. on 10/12/2021 at 12:36
--- NOTE | 2021-10-12 12:01 | DI.CT.S_ITS ---
PROCEDURE: CT HEAD/BRAIN WO CON INDICATIONS: vertigo, h/o brain meningioma TECHNIQUE: Noncontrast 4.5 mm thick angled axial sections acquired from the foramen magnum to the vertex, with coronal and sagittal reformats. For radiation dose reduction, the following was used: automated exposure control, adjustment of mA and/or kV according to patient size. COMPARISON: MR, MR HEAD/BRAIN WO/W CON, 03/25/2020, 8:31. CT, CT HEAD/BRAIN WO CON, 03/25/2020, 7:54. FINDINGS: Image quality: Excellent. CSF spaces: Basal cisterns are patent. No extra-axial fluid collections. Ventricles are normal in size and shape. Brain: No midline shift. No intracranial hemorrhage. Slight appearance of increased density within the medial aspect of the left cerebellum corresponding to previously identified meningioma. No mass effect. Michael-white matter interface is normal. Skull and face: Calvarium and visualized facial bones are intact, without suspicious lesions. Sinuses: Visualized sinuses demonstrate trace right maxillary sinus mucosal thickening. IMPRESSION: 1. No acute intracranial process. Dictated by: Ruth Johnson M.D. on 10/12/2021 at 12:44 Approved by: Ruth Johnson M.D. on 10/12/2021 at 12:49
[2021-10-12 12:03] VITALS: BP 126/66; PULSE 74; RESP 16; TEMP 36.9; O2SAT 95; BMI 31.0
[2021-10-12 12:15] VITALS: BP 130/76; PULSE 71; RESP 16; O2SAT 96
--- NOTE | 2021-10-12 12:21 | DI.CT.S_ITS ---
PROCEDURE: CT ANGIO HEAD AND NECK INDICATIONS: vertigo, elder, on thinners. TECHNIQUE: After the administration of intravenous contrast, 1 mm thick sections acquired from the aortic arch through the [place] of [place]. Post-contrast 4.5 mm thick sections then re-acquired from the foramen magnum to the vertex. 3-dimensional mijwswi-tyloitoju-ffchjtmqno (MIP) and/or volume rendering reformats were acquired of the central intracranial vasculature and neck separately. For radiation dose reduction, the following was used: automated exposure control, adjustment of mA and/or kV according to patient size. COMPARISON: [facility], CT, CT HEAD/BRAIN WO CON, 03/25/2020, 7:54. Outside Facility, RG, MRI BRAIN W/WO CONTRAST, 11/30/2012, 23:07. [facility], MR, MR HEAD/BRAIN WO/W CON, 03/25/2020, 8:31. [facility], CT, CT HEAD/BRAIN WO CON, 10/12/2021, 12:31. FINDINGS: Image quality: Excellent. BRAIN: CSF spaces: Ventricles are normal in size and shape. Basal cisterns are patent. No extra-axial fluid collections. Brain: No midline shift. No intracranial bleeds. There is a 1.3 by 1.9 x 1.3 centimeter enhancing, extra-axial left posterior fossa mass adjacent to the inferior margin left cerebellar hemisphere which is not significantly changed in size or contour compared to prior exams. Michael-white matter interface appears intact. Skull and face: Calvarium and facial bones appear intact, without suspicious lesions. Orbits appear normal. Sinuses: Sinuses and mastoids are clear. HEAD CT ANGIOGRAPHY: Anterior circulation: Intracranial internal carotid arteries are normal in flow. Atherosclerotic calcifications noted in the cavernous and clinoid segments of the internal carotid arteries bilaterally which causes mild stenosis of the vessels. The flow within the paired anterior cerebral arteries is normal and symmetric. The flow within the middle cerebral arteries is normal and symmetric. The anterior communicating artery is seen. No aneurysms are seen. Posterior circulation: Atherosclerotic calcification noted in the proximal V4 segment of the right vertebral artery which causes mild narrowing of the vessel. Normal flow noted in the basilar artery. Basilar artery is fully patent. Flow within the posterior cerebral arteries is normal and symmetric. No aneurysms are seen. Dural sinuses demonstrate normal postcontrast enhancement. NECK CT ANGIOGRAPHY: Carotid system: The great vessels demonstrate a conventional anatomy as they arise from the aortic arch. The origins of the common carotid arteries appear patent. The common carotid arteries demonstrate normal caliber and courses. Soft and calcified atherosclerotic plaque noted in the origins of the internal carotid arteries which causes less than 50% stenosis of the vessels. 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 Left vertebral artery arises from the aortic arch. The origins of the vertebral arteries both appear widely patent. The more superior extracranial portions of both vertebral arteries also demonstrate normal courses and calibers. They join to form a normal appearing basilar artery. Soft tissues: Visualized neck soft tissues demonstrate no suspicious abnormalities. Bones: No suspicious bony lesions. Spine degenerative disc disease and facet arthropathy. Visualized cervical spine appears normally aligned. IMPRESSION: 1. No acute intracranial disease process. 2. No large vessel occlusion, hemodynamically significant vascular stenosis, vascular dissection or aneurysm. 3. 1.3 x 1.9 x 1.3 centimeter left posterior fossa extra-axial enhancing mass which is stable compared to prior exams. Lesion likely represents a meningioma. Any quantitative measurements of stenosis were performed using NASCET criteria. Dictated by: Carmella Cisse MD, PhD on 10/12/2021 at 13:31 Approved by: Carmella Cisse MD, PhD on 10/12/2021 at 13:42
[2021-10-12 12:30] VITALS: BP 115/65; PULSE 71; RESP 16; O2SAT 92
[2021-10-12 12:35] LABS: Add Manual Diff / Slide Review NO; Basophils Absolute Auto 0 /uL (0-100); Basophils Percent Auto 0.8 % (0-2); Eosinophils Absolute Auto 100 /uL (0-450); Eosinophils Percent Auto 1.8 % (2-4); Hematocrit 43.4 % (41-53); Hemoglobin 14.6 g/dL (13.5-17.5); Lymphocytes Absolute Auto 700 /uL (1100-4500); Lymphocytes Percent Auto 12.9 % (25-40); Mean Corpuscular HGB Conc 33.7 % (30-36); Mean Corpuscular Hemoglobin 26.5 PG (26-34); Mean Corpuscular Volume 78.6 fL (80-100); Monocytes Absolute Auto 600 /uL (0-900); Monocytes Percent Auto 10.6 % (3-14); Neutrophils Absolute Auto 4200 /uL (1500-7000); Neutrophils Percent Auto 73.9 % (50-75); Platelet Count 135 X10^3/uL (150-400); Red Blood Cell Count 5.52 X10^6/uL (4.5-5.9); Red Cell Distribution Width 14.9 % (11.6-14.8); White Blood Cell Count 5.7 X10^3/uL (4.5-11.0)
[2021-10-12 12:43] LABS: INR 1.3 (0.9-1.3); Prothrombin Time 14.9 SECONDS (10.1-12.7)
[2021-10-12 12:46] LABS: PTT Partial Thromboplastin Tim 34 SECONDS (26.4-36.2)
[2021-10-12 12:49] LABS: Alanine Aminotransferase 29 IU/L (<50); Albumin 4.3 g/dL (3.5-5.0); Albumin Globulin Ratio 1.9 (1.0-2.8); Alkaline Phosphatase 59 U/L (38-126); Aspartate Aminotransferase 28 IU/L (17-59); BUN Creatinine Ratio 21.1 (6-22); Bilirubin Total 0.5 mg/dL (0.2-1.3); Blood Urea Nitrogen 24 mg/dL (9-20); Calcium 9.2 mg/dL (8.4-10.2); Carbon Dioxide 25 mmol/L (22-32); Chloride 109 mmol/L (98-107); Creatine Kinase 58 U/L (55-170); Estimated Glomerular Filt Rate > 60 mL/min (>60); Globulin 2.3 g/dL (1.7-4.1); Glucose 126 mg/dL (80-110); HEMOLYSIS < 15 (0-50); Lipase 1418 U/L (23-300); Magnesium 2.1 mg/dL (1.6-2.3); Potassium 4.1 mmol/L (3.4-5.1); Sodium 140 mmol/L (137-145); Total Protein 6.6 g/dL (6.3-8.2)
[2021-10-12] MEDS: ACETAMINOPHEN 325 MG TABLET 650 MG PO (12:59)
[2021-10-12 13:01] LABS: Troponin I < 0.012 ng/mL (0.01-0.034)
[2021-10-12 14:30] VITALS: BP 137/86; PULSE 71; RESP 18; O2SAT 97
== END 2021-10-12 14:32 | disposition home or self-care (01) ==
PROVIDERS: Emergency Provider Emergency Medicine; PCP Family Medicine
DX: R42 Dizziness and giddiness (principal); R07.9 Chest pain, unspecified; Z79.01 Long term (current) use of anticoagulants
CPT/HCPCS: 36415; 70450; 70496; 70498; 71045; 80053; 82550; 83690; 83735; 84484; 85025; 85610; 85730; 93005; 99284; 99285; Q9967

== ENCOUNTER → 2022-07-19 10:44 | Outpatient (CLI) | payer MEDICARE, SELFPAY ==
[2022-07-19 11:39] LABS: Add Manual Diff / Slide Review NO; Basophils Absolute Auto 0 /uL (0-100); Basophils Percent Auto 0.5 % (0-2); Eosinophils Absolute Auto 100 /uL (0-450); Eosinophils Percent Auto 1.8 % (2-4); Hematocrit 48.7 % (41-53); Hemoglobin 16.5 g/dL (13.5-17.5); Lymphocytes Absolute Auto 800 /uL (1100-4500); Lymphocytes Percent Auto 13.1 % (25-40); Mean Corpuscular HGB Conc 33.9 % (30-36); Mean Corpuscular Hemoglobin 26.1 PG (26-34); Mean Corpuscular Volume 77.1 fL (80-100); Monocytes Absolute Auto 600 /uL (0-900); Neutrophils Absolute Auto 4400 /uL (1500-7000); Neutrophils Percent Auto 74.6 % (50-75); Platelet Count 157 X10^3/uL (150-400); Red Blood Cell Count 6.32 X10^6/uL (4.5-5.9); Red Cell Distribution Width 15.4 % (11.6-14.8); White Blood Cell Count 5.8 X10^3/uL (4.5-11.0)
[2022-07-19 11:51] LABS: Hemoglobin A1C% w Est Avg Glu 6.6 % (4.0-6.0)
[2022-07-19 12:07] LABS: Alanine Aminotransferase 26 IU/L (<50); Albumin 4.6 g/dL (3.5-5.0); Albumin Globulin Ratio 1.5 (1.0-2.8); Alkaline Phosphatase 86 U/L (38-126); Aspartate Aminotransferase 27 IU/L (17-59); BUN Creatinine Ratio 19.6 (6-22); Bilirubin Total 0.7 mg/dL (0.2-1.3); Blood Urea Nitrogen 22 mg/dL (9-20); Calcium 9.7 mg/dL (8.4-10.2); Carbon Dioxide 25 mmol/L (22-32); Chloride 103 mmol/L (98-107); Cholesterol 273 mg/dL (140-199); Estimated Glomerular Filt Rate > 60 mL/min (>60); Glucose 131 mg/dL (80-110); HDL Cholesterol 40 mg/dL (40-60); HEMOLYSIS < 15 (0-50); LDL Cholesterol Calculated 194 mg/dL (<100); Potassium 4.3 mmol/L (3.4-5.1); Sodium 138 mmol/L (137-145); Total Protein 7.6 g/dL (6.3-8.2); Triglycerides 196 mg/dL (35-150)
[2022-07-19 12:29] LABS: TSH w/ Reflex to FT4 1.54 uIU/mL (0.47-4.68)
[2022-07-19 12:48] LABS: Creatinine Urine Random 62.3 mg/dL
[2022-07-19 13:11] LABS: Microalbumi Creatinin Ratio Ur 544.1 ug/mg CR (<30); Microalbumin Urine Random 33.9 mg/dL (0-1.6)
== END ==
PROVIDERS: PCP Family Medicine; Referring Provider Family Medicine; Visit Provider Family Medicine
DX: E11.9 Type 2 diabetes mellitus without complications (principal); F41.9 Anxiety disorder, unspecified; G47.30 Sleep apnea, unspecified; I10 Essential (primary) hypertension; I25.10 Atherosclerotic heart disease of native coronary artery without angina pectoris
CPT/HCPCS: 36415; 80053; 80061; 82043; 82570; 83036; 84443; 85025

== ENCOUNTER → 2022-11-15 17:47 | Outpatient (CLI) | payer MEDICARE, SELFPAY ==
[2022-11-15 18:13] LABS: Add Manual Diff / Slide Review NO; Basophils Absolute Auto 100 /uL (0-100); Basophils Percent Auto 1.1 % (0-2); Eosinophils Absolute Auto 100 /uL (0-450); Eosinophils Percent Auto 2.1 % (2-4); Hemoglobin 15.6 g/dL (13.5-17.5); Lymphocytes Absolute Auto 1100 /uL (1100-4500); Lymphocytes Percent Auto 15.8 % (25-40); Mean Corpuscular HGB Conc 33.8 % (30-36); Mean Corpuscular Hemoglobin 26.8 PG (26-34); Mean Corpuscular Volume 79.3 fL (80-100); Monocytes Absolute Auto 600 /uL (0-900); Monocytes Percent Auto 8.8 % (3-14); Neutrophils Absolute Auto 5100 /uL (1500-7000); Neutrophils Percent Auto 72.2 % (50-75); Platelet Count 130 X10^3/uL (150-400); Red Cell Distribution Width 15.3 % (11.6-14.8); White Blood Cell Count 7.1 X10^3/uL (4.5-11.0)
[2022-11-15 18:28] LABS: Alanine Aminotransferase 38 IU/L (<50); Albumin 4.4 g/dL (3.5-5.0); Albumin Globulin Ratio 1.6 (1.0-2.8); Alkaline Phosphatase 77 U/L (38-126); Aspartate Aminotransferase 31 IU/L (17-59); BUN Creatinine Ratio 20.3 (6-22); Bilirubin Total 0.7 mg/dL (0.2-1.3); Blood Urea Nitrogen 24 mg/dL (9-20); Calcium 9.5 mg/dL (8.4-10.2); Carbon Dioxide 24 mmol/L (22-32); Chloride 105 mmol/L (98-107); Cholesterol 120 mg/dL (140-199); Estimated Glomerular Filt Rate > 60 mL/min (>60); Globulin 2.7 g/dL (1.7-4.1); Glucose 113 mg/dL (80-110); HDL Cholesterol 42 mg/dL (40-60); HEMOLYSIS 21 (0-50); LDL Cholesterol Calculated 61 mg/dL (<100); Potassium 4.1 mmol/L (3.4-5.1); Sodium 137 mmol/L (137-145); Total Protein 7.1 g/dL (6.3-8.2); Triglycerides 85 mg/dL (35-150); Uric Acid 5.7 mg/dL (3.5-8.5)
[2022-11-15 18:56] LABS: Prostate Specific Antigen Scrn 0.604 ng/mL (0.1-4.0)
[2022-11-15 18:57] LABS: TSH w/ Reflex to FT4 1.87 uIU/mL (0.47-4.68)
== END ==
PROVIDERS: PCP Family Medicine; Referring Provider Family Medicine; Visit Provider Family Medicine
DX: I10 Essential (primary) hypertension; Z12.5 Encounter for screening for malignant neoplasm of prostate; E11.9 Type 2 diabetes mellitus without complications; F41.9 Anxiety disorder, unspecified; G47.30 Sleep apnea, unspecified; M10.9 Gout, unspecified; R30.0 Dysuria
CPT/HCPCS: 36415; 80053; 80061; 83036; 84443; 84550; 85025; 87086; G0103

== ENCOUNTER → 2023-02-17 08:21 | Outpatient (CLI) | payer MEDICARE, SELFPAY ==
--- NOTE | 2023-02-17 08:22 | DI.US.S_ITS ---
PROCEDURE: US THYROID INDICATIONS: EVALUATE ANTERIOR NECK TECHNIQUE: Real-time scanning was performed of the thyroid gland, with image documentation. COMPARISON: None. FINDINGS: Right: Thyroid lobe measures 3.8 x 1.8 x 1.6 cm, and is homogeneous in echotexture. Left: Thyroid lobe measures 3.9 x 1.6 x 1.3 cm, and is homogenous in echotexture. Isthmus: 5.5 mm thick. No nodules are identified. The submandibular glands appear prominent but are normal and symmetric appearing. IMPRESSION: Normal thyroid. No nodules. Dictated by: Jj Thomason M.D. on 02/17/2023 at 11:12 Approved by: Jj Thomason M.D. on 02/17/2023 at 11:14
== END ==
PROVIDERS: PCP Family Medicine; Referring Provider Family Medicine; Visit Provider Family Medicine
DX: R22.1 Localized swelling, mass and lump, neck (principal)
CPT/HCPCS: 76536

== ENCOUNTER → 2023-10-09 09:32 | Outpatient (CLI) | payer MEDICARE, SELFPAY ==
[2023-10-09 11:12] LABS: Add Manual Diff / Slide Review NO; Basophils Absolute Auto 0 /uL (0-100); Basophils Percent Auto 0.7 % (0-2); Eosinophils Absolute Auto 200 /uL (0-450); Eosinophils Percent Auto 2.6 % (2-4); Hematocrit 46.7 % (41-53); Hemoglobin 15.9 g/dL (13.5-17.5); Lymphocytes Absolute Auto 900 /uL (1100-4500); Lymphocytes Percent Auto 14.4 % (25-40); Mean Corpuscular HGB Conc 34.1 % (30-36); Mean Corpuscular Hemoglobin 26.6 PG (26-34); Mean Corpuscular Volume 78.1 fL (80-100); Monocytes Absolute Auto 500 /uL (0-900); Monocytes Percent Auto 7.6 % (3-14); Neutrophils Absolute Auto 4400 /uL (1500-7000); Neutrophils Percent Auto 74.7 % (50-75); Platelet Count 158 X10^3/uL (150-400); Red Blood Cell Count 5.98 X10^6/uL (4.5-5.9); White Blood Cell Count 5.9 X10^3/uL (4.5-11.0)
[2023-10-09 11:19] LABS: Hemoglobin A1C% w Est Avg Glu 9.7 % (4.0-6.0)
[2023-10-09 11:40] LABS: Alanine Aminotransferase 21 IU/L (<50); Albumin 4.4 g/dL (3.5-5.0); Alkaline Phosphatase 113 U/L (38-126); Aspartate Aminotransferase 23 IU/L (17-59); BUN Creatinine Ratio 15.3 (6-22); Bilirubin Total 0.6 mg/dL (0.2-1.3); Blood Urea Nitrogen 22 mg/dL (9-20); Calcium 9.6 mg/dL (8.4-10.2); Carbon Dioxide 25 mmol/L (22-32); Chloride 104 mmol/L (98-107); Cholesterol 281 mg/dL (140-199); Estimated Glomerular Filt Rate 52 mL/min (>60); Globulin 2.2 g/dL (1.7-4.1); Glucose 294 mg/dL (80-110); HDL Cholesterol 49 mg/dL (40-60); HEMOLYSIS < 15 (0-50); LDL Cholesterol Calculated 179 mg/dL (<100); Potassium 4.7 mmol/L (3.4-5.1); Sodium 138 mmol/L (137-145); Total Protein 6.6 g/dL (6.3-8.2); Triglycerides 265 mg/dL (35-150)
== END ==
PROVIDERS: PCP Family Medicine; Referring Provider Family Medicine; Visit Provider Family Medicine
DX: E11.9 Type 2 diabetes mellitus without complications (principal); J34.89 Other specified disorders of nose and nasal sinuses; F41.9 Anxiety disorder, unspecified
CPT/HCPCS: 36415; 80053; 80061; 83036; 85025

== ENCOUNTER → 2024-03-29 10:36 | Outpatient (ROUT) | payer MEDICARE, SELFPAY | PROVIDERS: Visit Provider Dermatology | DX: L02.212 Cutaneous abscess of back [any part, except buttock and flank] (principal); L72.0 Epidermal cyst; L98.8 Other specified disorders of the skin and subcutaneous tissue; R20.8 Other disturbances of skin sensation | CPT/HCPCS: 87070; 87205 ==

== ENCOUNTER → 2025-02-17 11:45 | Outpatient (CLI) | payer MEDICARE, SELFPAY ==
[2025-02-17 13:17] LABS: Alanine Aminotransferase 28 IU/L (<50); Albumin 4.6 g/dL (3.5-5.0); Albumin Globulin Ratio 1.9 (1.0-2.8); Alkaline Phosphatase 68 U/L (38-126); Blood Urea Nitrogen 22 mg/dL (9-20); Calcium 10.2 mg/dL (8.4-10.2); Carbon Dioxide 24 mmol/L (22-32); Chloride 108 mmol/L (98-107); Cholesterol 132 mg/dL (140-199); Estimated Glomerular Filt Rate 53 mL/min (>60); Globulin 2.4 g/dL (1.7-4.1); Glucose 115 mg/dL (70-99); HDL Cholesterol 45 mg/dL (40-60); HEMOLYSIS < 15 (0-50); Magnesium 2.2 mg/dL (1.6-2.3); Potassium 4.3 mmol/L (3.4-5.1); Sodium 142 mmol/L (137-145); Total Protein 7.0 g/dL (6.3-8.2); Triglycerides 93 mg/dL (35-150)
[2025-02-17 13:46] LABS: Thyroid Stimulating Hormone 1.22 uIU/mL (0.47-4.68)
== END ==
PROVIDERS: PCP Family Medicine; Referring Provider Internal Medicine Cardiovascular Disease; Visit Provider Internal Medicine Cardiovascular Disease
DX: I10 Essential (primary) hypertension (principal); E78.5 Hyperlipidemia, unspecified; I49.3 Ventricular premature depolarization
CPT/HCPCS: 36415; 80053; 80061; 83735; 84443

== ENCOUNTER → 2025-03-14 08:43 | Outpatient (CLI) | payer MEDICARE, SELFPAY ==
[2025-03-14 10:07] LABS: Add Manual Diff / Slide Review NO; Hematocrit 44.3 % (41-53); Hemoglobin 15.1 g/dL (13.5-17.5); Lymphocytes Absolute Auto 700 /uL (1100-4500); Mean Corpuscular HGB Conc 34.1 % (30-36); Mean Corpuscular Hemoglobin 26.7 PG (26-34); Mean Corpuscular Volume 78.3 fL (80-100); Platelet Count 148 X10^3/uL (150-400)
[2025-03-14 10:12] LABS: Hemoglobin A1C% w Est Avg Glu 6.5 % (4.0-6.0)
[2025-03-14 10:26] LABS: Uric Acid 6.6 mg/dL (3.5-8.5)
== END ==
PROVIDERS: PCP Family Medicine; Referring Provider Family Medicine; Visit Provider Family Medicine
DX: E78.00 Pure hypercholesterolemia, unspecified (principal); E11.9 Type 2 diabetes mellitus without complications; Z12.5 Encounter for screening for malignant neoplasm of prostate; I48.20 Chronic atrial fibrillation, unspecified; M1A.0720 Idiopathic chronic gout, left ankle and foot, without tophus (tophi)
CPT/HCPCS: 36415; 83036; 84550; 85025; G0103